=== PATIENT | male | born 1985 | race African-American/Black ===

== ENCOUNTER 2016-11-13 03:11 | Emergency (ER) | payer OTHER ==
[~2016-11-13] VITALS: Ht 177.8 cm; Wt 102.1 kg
[~2016-11-13 03:11] MED LIST: BACTRIM DS TAB1 EACH PO; KEFLEX500 MG PO; NOHOMEMEDICATIONS; NORCO 5-325 TA1 EACH PO
[2016-11-13 03:58] LABS: ABSOLUTE NEUTROPHILS 8.7 thou/uL (1.4-8.2); BASOPHILS 0.7 % (0.0-2.0); EOSINOPHILS 0.5 % (0.0-3.0); HEMATOCRIT 42.3 % (42.0-52.0); HEMOGLOBIN 14.6 gm/dL (14.0-18.0); LYMPHOCYTES 23.5 % (24.0-44.0); MCH 29.1 pg (26.0-34.0); MCHC 34.6 g/dL (28.0-37.0); MCV 84.1 fL (80.0-100.0); MONOCYTES 7.9 % (1.0-8.0); PLATELET COUNT 196 thou/uL (150-400); POLYS 67.4 % (36.0-66.0); RBC 5.04 mil/uL (4.50-6.00); RDW 14.1 % (10.5-14.5); WBC 12.9 thou/uL (4.0-11.0)
[2016-11-13 03:59] LABS: MANUAL DIFF NO
[2016-11-13 04:08] LABS: CALCIUM 8.8 mg/dL (8.5-10.1); CREATININE 0.9 mg/dL (0.6-1.3); POTASSIUM 3.6 mmol/L (3.5-5.1)
[2016-11-13 04:12] LABS: ALBUMIN 3.7 g/dL (3.4-5.0); TOTAL BILIRUBIN 0.9 mg/dL (<0.1-1.0)
[2016-11-13] MEDS ORDERED: CLEOCIN HCL150 MG PO (05:52)
[2016-11-13] MEDS ORDERED: TRAMADOL 50 MG50 MG PO (05:52)
[2016-11-13 06:00] VITALS: BP 123/86
== END 2016-11-13 06:12 | disposition home or self-care (01) ==
LOC: ER 03:11
PROVIDERS: Emergency Medicine
DX: L02.211 Cutaneous abscess of abdominal wall (principal); F17.210 Nicotine dependence, cigarettes, uncomplicated

== ENCOUNTER 2016-11-19 15:03 | Emergency (ER) | payer OTHER ==
[~2016-11-19] VITALS: Ht 177.8 cm; Wt 102.1 kg
[~2016-11-19 15:03] MED LIST changes: +CLEOCIN HCL150 MG PO; +TRAMADOL 50 MG50 MG PO
[2016-11-19 15:11] VITALS: BP 155/96
== END 2016-11-19 15:55 ==
LOC: ER 15:03
DX: L02.211 Cutaneous abscess of abdominal wall (principal)

== ENCOUNTER 2019-11-23 04:35 | Inpatient (IN) | payer OTHER ==
[~2019-11-23] VITALS: Ht 152.4 cm; Wt 106.6 kg
--- NOTE | ~2019-11-23 | HC ---
[facility] [place] [address] CONSULTATION Name: ANIYA MORALEZ Room #: 440-P ADM IN M.R.#: [id number] Admission: 11/23/19 Attend Phys: Pérez Cortez MD Discharge: Date of : 89 Report #: [id number] THIS REPORT FOR: cc: NO FAMILY PHYSICIAN or PCP NO FAMILY PHYSICIAN or PCP Arnel Burns MD ~ CC: NO PCP Pérez Cortez DATE OF SERVICE: 11/23/2019 INFECTIOUS DISEASE CONSULTATION REASON FOR CONSULTATION: I was asked to evaluate concerning left upper extremity soft tissue abscesses and fever in the setting of IV drug use. HISTORY OF PRESENT ILLNESS: A 34-year-old presents with a 3-day history of increased swelling, pain involving the left upper extremity after after injecting intravenous drugs including opiates, PCP, methamphetamines. He states he went to previous Emergency Room and was put on oral therapy several days ago. Details of this are not available. He has had fever without nausea, vomiting, diarrhea, dysuria or frequency. No headaches or change in mental status. No cough or sputum production. Unclear as to what oral antibiotic he was on. He states he has been doing intravenous drugs for several months. He is right handed. ALLERGIES: None known. MEDICATIONS: As noted on his OCT, now on vancomycin and Zosyn. PAST MEDICAL HISTORY: Laceration to his upper arm. Otherwise, has been healthy. FAMILY HISTORY: No reported tuberculosis. SOCIAL HISTORY: In addition to the above, he smokes cigarettes, marijuana and uses alcohol. REVIEW OF SYSTEMS: A 14-point review of system was negative other than what has been described above. PHYSICAL EXAMINATION: VITAL SIGNS: He was afebrile and hemodynamically stable. His pulse is 95, blood pressure 135/81. GENERAL: He was alert and cooperative. Moderately obese. EXTREMITIES: Left upper extremity with 2 fluctuant areas, one to the distal [facility] [address] [place] [address] CONSULTATION Name: VICENTE MERCERANIYA Room #: 440-P [facility] IN [facility].#: [id number] Admission: 11/23/19 Attend Phys: Pérez Cortez MD Discharge: Date of : 89 Report #: [id number] forearm and one to the more proximal forearm. There was purulent drainage from distal collection. He had 2+ swelling, mostly over the hand and wrist region. He had limited motion in his hand from swelling and pain. Limited range of motion in the wrist as well. Pulses in the wrist were normal. Capillary refill in the distal digits was within normal limits. Sensation to touch was within normal limits in the hand and fingers. HEENT: Eyes without scleral icterus or conjunctivitis. Mouth without mucositis. NECK: Supple. No palpable adenopathy. Did not identify any lymphangitis spread to the upper arm. CHEST: Clear. HEART: Regular, without murmur. ABDOMEN: Soft and nontender with no hepatosplenomegaly or mass appreciated. EXTREMITIES: Other extremities were without clubbing, cyanosis or edema. NEUROLOGIC: Cranial nerves intact. Strength in his upper and lower extremities was within normal limits as well as sensation to touch. Mood was without anxiety or depression. LABORATORY STUDIES: Hemoglobin 12.6, WBC 14.8, platelets 309,000. Sodium 129, potassium 3.9, creatinine 1, glucose 290-380. Lactate 1.3. Liver function test normal. C-reactive protein 166. Drug screen positive for opiates, phencyclidine, amphetamine, methamphetamines and marijuana. CT scan of his left upper extremity, extensive subcutaneous edema throughout the arm below the elbow with phlegmonous change in several locations both distal and proximal forearm, tenosynovitis also suggested. No bony abnormality. IMPRESSION: A 34-year-old IV drug user with extensive soft tissue infection, left upper extremity. Suspect Staph infection most likely, but will need to await culture results. Elevated blood glucose concerning for diabetes. RECOMMENDATIONS: We will obtain tissue culture today. Surgery services to evaluate. We will continue with broad IV antibiotic therapy pending culture results. Address blood glucose levels while hospitalized. Screen for HIV and hepatitis. By: [id number] Arnel Burns MD /nt
[2019-11-23 04:44] VITALS: BP 164/97
[2019-11-23] MEDS ORDERED: KLOR-CON 10 ER10 MEQ PO (05:19)
[2019-11-23] MEDS ORDERED: IPRAT-ALBUT 0.5-3 ML INH (05:19)
[2019-11-23] MEDS ORDERED: MUPIROCIN1 GM TOP (05:21)
[2019-11-23] MEDS ORDERED: KETOCONAZOLE15 GM TOP (05:21)
[2019-11-23] MEDS ORDERED: RISPERDAL0.5 MG PO ×2 (05:22→05:26)
[2019-11-23] MEDS ORDERED: KRISTALOSE20 GM PO (05:23)
[2019-11-23] MEDS ORDERED: ZOLOFT100 MG PO (05:25)
[2019-11-23] MEDS ORDERED: DEPAKOTE ER500 M1 PO (05:26)
[2019-11-23] MEDS ORDERED: NYSTATIN1 EA10 TOP (05:27)
[2019-11-23] MEDS ORDERED: DEPAKOTE250 MG PO (05:27)
[2019-11-23] MEDS ORDERED: EUCERIN CREME57 GM TOP (05:28)
[2019-11-23] MEDS ORDERED: LASIX 40 MG TAB40 MG PO (05:28)
[2019-11-23] MEDS ORDERED: FEXOFENADINE HCL PO (05:30)
[2019-11-23] MEDS ORDERED: NORVASC 2.5 MG2.5 M1 PO (05:30)
[2019-11-23] MEDS ORDERED: RANITIDINE HCL150 M1 PO (05:31)
[2019-11-23] MEDS ORDERED: VANACOF DM LIQ240 ML PO (05:32)
[2019-11-23] MEDS ORDERED: MYLANTA MAXIMU355 ML PO (05:33)
[2019-11-23] MEDS ORDERED: MIRALAX119 GM PO (05:34)
[2019-11-23] MEDS ORDERED: OXYBUTYNIN 5 MG5 M2 PO (05:34)
[2019-11-23] MEDS ORDERED: LOPRESSOR50 MG PO (05:35)
[2019-11-23] MEDS ORDERED: LUMIGAN2.5 M1 OPHTHALMIC (05:36)
[2019-11-23] MEDS ORDERED: TYLENOL325 M1 PO (05:37)
[2019-11-23 05:38] LABS: ABSOLUTE NEUTROPHILS 10.1 thou/uL (1.4-8.2); BASOPHILS 0.8 % (0.0-2.0); EOSINOPHILS 0.8 % (0.0-3.0); HEMATOCRIT 38.1 % (42.0-52.0); HEMOGLOBIN 12.6 gm/dL (14.0-18.0); LYMPHOCYTES 21.3 % (24.0-44.0); MCH 26.2 pg (26.0-34.0); MCV 79.4 fL (80.0-100.0); MONOCYTES 8.4 % (1.0-8.0); PLATELET COUNT 309 thou/uL (150-400); POLYS 68.7 % (36.0-66.0); RDW 14.4 % (10.5-14.5); WBC 14.8 thou/uL (4.0-11.0)
[2019-11-23] MEDS ORDERED: MICONAZOLE NITR45 GM TOP (05:39)
[2019-11-23] MEDS ORDERED: CALAZIME TOP (05:40)
[2019-11-23 06:00] LABS: CALCIUM 8.7 mg/dL (8.5-10.1); POTASSIUM 3.9 mmol/L (3.5-5.1)
[2019-11-23 08:47] LABS: AMP/METHAMP POSITIVE (Negative); BARBITURATES Negative (Negative); BENZODIAZEPINES Negative (Negative); COCAINE Negative (Negative); METHADONE Negative (Negative); OPIATES POSITIVE (Negative); PCP POSITIVE (Negative)
[2019-11-23 09:17] VITALS: BP 139/86
[2019-11-23 10:34] VITALS: BP 142/94
[2019-11-23 11:00] VITALS: BP 135/81
[2019-11-23 11:22] LABS: DIRECT BILIRUBIN < 0.1 mg/dL (<0.1-0.2); GGTP 31 U/L (15-85); SGOT 19 U/L (15-37); SGPT 20 U/L (30-65); TOTAL BILIRUBIN 0.3 mg/dL (<0.1-1.0); TOTAL PROTEIN 8.9 g/dL (6.4-8.2)
--- NOTE | 2019-11-23 12:31 | NUR ---
ADMISSION NOTE: PT ARRIVED ON FLOOR AT 1055 FROM ED. ALERT AND ORIENTED, APPROPRIATE BEHAVIOR. C/O PAIN IN ARM D/T CELLULITIS, PRN MEDS GIVEN. NPO WITH IVF RUNNING WITHOUT COMPLICATIONS. PT STATES USES IV DRUGS, DEPENDENT ON OPIATES. WILL MONITOR SYMPTOMS.
--- NOTE | 2019-11-23 15:47 | NUR ---
PT ADMITTED RELATED TO CELLULITIS OF ARM. CM REVIEWED CHART AND SPOKE WITH CARE TEAM. CM ATTEMPTED PC TO PT'S ROOM TWICE WITH NO RESPONSE. ID CONSULTED WELL SURGERY AND WOUND CARE. CM TO FOLLOW INDICATED WITH DC PLANNING. CARE TEAM INDICATED THAT PT'S HAS NO PCP. CM TO PROVIDE INFO ON [facility] FOR GETTING ESTABLISHED FOR CONTINUED CARES UPON DC. CM TO CONTINUE TO ATTEMPT TO CONTACT PT. CM TO FOLLOW INDICATED WITH DC PLANNING.
[2019-11-23 16:50] VITALS: BP 155/97
[2019-11-23 19:45] VITALS: BP 134/81
--- NOTE | 2019-11-23 22:58 | NUR ---
PT FOUND WITH SYRINGE AND SUSPECTED HEROIN WHILE IN THE SHOWER. SECURITY AND THIS NURSE NOTIFIED. SECURITY SEARCHED PT BELONGINGS AND FOUND OTHER PARAPHERNALIA. PT REQUESTS TO LEAVE AMA AT THIS TIME. PCP, ORTHO, AND ID NOTIFIED. EXPLAINED TO PATIENT THE IMPORTANCE OF REMAINING IN THE HOSPITAL FOR IV ANTIBIOTICS AND WOUND CARE BUT PT CONT TO INSIST ON LEAVING. [employer] DRESSING AND ANDREA WRAP SENT WITH PATIENT. PT ALSO TOLD TO CALL [facility] IN THE MORNING FOR FOLLOW UP INSTRUCTIONS. AMA PAPERS WERE SIGNED AND SECURITY ESCORTED HIM OUT OF THE BUILDING.
[2019-11-24 00:07] LABS: GLYCOHEMOGLOBIN (HGB A1C) 13.7 % (4.8-5.6)
--- NOTE | 2019-11-24 07:26 | NUR ---
ORDERS RECEIVED FOR P.T. TO EVAL AND TREAT. PT DISCHARGED PRIOR TO P.T. EVAL.
--- NOTE | 2019-11-24 09:56 | O ---
[address] [address] OPERATIVE REPORT Name: ZHANGOLGA MERCERANIYA Room #: 440-P [facility] IN M.R.#: [id number] Admission: 11/23/19 Attend Phys: Pérez Cortez MD Discharge: 11/23/19 Date of : 89 Report #: [id number] THIS REPORT FOR: cc: NO FAMILY PHYSICIAN or PCP NO FAMILY PHYSICIAN or PCP Yuri Westbrook MD ~ CC: NO PCP Pérez Cortez DATE OF SERVICE: 11/23/2019 SERVICE: Orthopedics. FACILITY: [facility]. SURGEON: Yuri Westbrook MD [employer] OPERATOR: Marichuy Escobedo NP. PREOPERATIVE DIAGNOSES: 1. Abscess, left forearm. 2. Cellulitis, left forearm. 3. History of IV drug abuse. POSTOPERATIVE DIAGNOSES: 1. Abscess, left forearm. 2. Cellulitis, left forearm. 3. History of IV drug abuse. PROCEDURE: Incision and drainage, left forearm abscess x 2. COMPLICATIONS: None. DRAINS: None. SPECIMENS: Cultures taken x 2 for aerobic, anaerobic, fungal and AFB. ESTIMATED BLOOD LOSS: 30 mL. FINDINGS: 1. Two large abscess cavities. The first larger over the radial border of the wrist and the second smaller over the flexor muscle compartment more ulnarly and proximally in the forearm. 2. Significant amount of purulence, but no significant deep necrosis or pockets. [address] [address] OPERATIVE REPORT Name: ANIYA MORALEZ Room #: 440-P [facility] IN [facility].#: [id number] Admission: 11/23/19 Attend Phys: Pérez Cortez MD Discharge: 11/23/19 Date of : 89 Report #: [id number] HISTORY: The patient is a 34-year-old gentleman with history of IV drug use, who developed an abscess x 2 in his forearm. He was seen in the outside Emergency Room and he was discharged subsequent to that. He presented to [facility] Emergency Room with a large abscesses with signs of sepsis. He was indicated for surgical treatment. Risks, benefits, alternatives and indications for surgery were discussed with him in detail. Risks include, but not limited to pain, bleeding, infection, persistence need for further surgery including revision, need for extensive wound care as well as complications related to anesthesia and the infection itself up to and including . PROCEDURE IN DETAIL: After left upper extremity was correctly identified as the operative extremity, the patient was taken to the operating room where general anesthesia was induced without complication. He was padded appropriately. Prophylactic antibiotics have been started from the Emergency Room for treatment at treatment doses. He had left arm prepped and draped in standard sterile fashion. Timeout procedure performed. Incision made over the radial border of the wrist where the primary abscesses located and a large volume of yellow pus under pressure was identified and this was then suctioned and irrigated and the wound bed was explored with blunt dissection. Similarly, the more proximal volar abscess in the forearm was incised as well. Again, significant amount of purulence was obtained from this area and these were both cultured independently and sent. The wound bed was explored with blunt dissection. There was really minimal tracking in terms of further extent of involvement with either of these. There was some edema that was present from the cellulitis and between the two areas a general swelling, but no additional pus pockets or signs of abscess or fluctuance. Two liters of saline was then lavaged through the 2 wounds thoroughly and debridement down to the fascial layer was completed. Hemostasis was achieved. There was some general oozing, so we will hold for 24 hours on the aspirin anticoagulation. The wounds were then packed with dry Kerlix and then overwrapped with an Bj wrap and he will be elevated and admitted for continued IV antibiotics. There were no complications. All counts were correct. <ELECTRONICALLY SIGNED> By: Yuri Westbrook MD 11/24/19 [id number] Yuri Westbrook MD /nt
== END 2019-11-23 22:59 | disposition left against medical advice (07) | DRG 854 ==
LOC: ER 04:35 → 4S 09:30 → EROBS 09:30 → 4S 10:49
PROVIDERS: Emergency Medicine Emergency Medical Services; ADMIT Internal Medicine
PROC: 0JBH0ZZ Excision of Left Lower Arm Subcutaneous Tissue and Fascia, Open Approach (ICD-10-PCS; principal; 2019-11-23)
DX: A41.9 Sepsis, unspecified organism (principal); L02.414 Cutaneous abscess of left upper limb; E87.1 Hypo-osmolality and hyponatremia; F17.200 Nicotine dependence, unspecified, uncomplicated; L03.114 Cellulitis of left upper limb; R73.9 Hyperglycemia, unspecified; Z53.29 Procedure and treatment not carried out because of patient's decision for other reasons; Z91.19 Patient's noncompliance with other medical treatment and regimen
CPT/HCPCS: 10102; 50101; 50386; 50445; 57091; 57103; 62110; 62900; 70005

== ENCOUNTER 2019-12-03 22:23 | Emergency (ER) | payer OTHER ==
[~2019-12-03] VITALS: Ht 177.8 cm; Wt 104.3 kg
[~2019-12-03 22:23] MED LIST changes: +CALAZIME TOP; +DEPAKOTE ER500 M1 PO; +DEPAKOTE250 MG PO; +EUCERIN CREME57 GM TOP; +FEXOFENADINE HCL PO; +IPRAT-ALBUT 0.5-3 ML INH; +KETOCONAZOLE15 GM TOP; +KLOR-CON 10 ER10 MEQ PO; +KRISTALOSE20 GM PO; +LASIX 40 MG TAB40 MG PO; +LOPRESSOR50 MG PO; +LUMIGAN2.5 M1 OPHTHALMIC; +MICONAZOLE NITR45 GM TOP; +MIRALAX119 GM PO; +MUPIROCIN1 GM TOP; +MYLANTA MAXIMU355 ML PO; +NORVASC 2.5 MG2.5 M1 PO; +NYSTATIN1 EA10 TOP; +OXYBUTYNIN 5 MG5 M2 PO; +RANITIDINE HCL150 M1 PO; +RISPERDAL0.5 MG PO; +TYLENOL325 M1 PO; +VANACOF DM LIQ240 ML PO; +ZOLOFT100 MG PO
[2019-12-03 23:08] LABS: URINE BILIRUBIN NEGATIVE (Negative); URINE BLOOD NEGATIVE (Negative); URINE CLARITY CLEAR; URINE COLOR YELLOW; URINE GLUCOSE-RANDOM* 3+ (Negative); URINE KETONES NEGATIVE (Negative); URINE LEUKOCYTES-REFLEX NEGATIVE (Negative); URINE NITRITE-REFLEX NEGATIVE (Negative); URINE PROTEIN (DIPSTICK) NEGATIVE (Negative); URINE SPECIFIC GRAVITY <= 1.005 (1.005-1.035); URINE UROBILINOGEN 0.2 E.U./dl (0.2-1.0)
[2019-12-03 23:19] LABS: AMP/METHAMP POSITIVE (Negative); BARBITURATES Negative (Negative); BENZODIAZEPINES Negative (Negative); COCAINE Negative (Negative); METHADONE Negative (Negative); OPIATES POSITIVE (Negative); PCP POSITIVE (Negative)
[2019-12-03 23:44] VITALS: BP 166/128
[2019-12-03] MEDS ORDERED: METFORMIN HCL500 MG PO (23:44)
== END 2019-12-03 23:55 | disposition home or self-care (01) ==
LOC: ER 22:23
PROVIDERS: Emergency Medicine
DX: E11.9 Type 2 diabetes mellitus without complications (principal); F11.10 Opioid abuse, uncomplicated; F16.10 Hallucinogen abuse, uncomplicated; F15.90 Other stimulant use, unspecified, uncomplicated; F17.210 Nicotine dependence, cigarettes, uncomplicated; Z48.01 Encounter for change or removal of surgical wound dressing